=== PATIENT | female | born 1995 | race African-American/Black ===

== ENCOUNTER 2020-09-12 16:59 | Emergency (ER) | payer OTHER ==
[2020-09-12] MEDS ORDERED: ANXIETY/DEPRESSION PO (17:49)
[2020-09-12] MEDS ORDERED: MYRAC50 MG PO (17:49)
[2020-09-12] MEDS ORDERED: BIRTHCONTROL (17:50)
[2020-09-12 17:57] LABS: URINE BILIRUBIN - DIPSTICK NEGATIVE (NEGATIVE); URINE BLOOD DIPSTICK MODERATE (NEGATIVE); URINE CLARITY CLEAR; URINE COLOR YELLOW; URINE GLUCOSE - DIPSTICK NEGATIVE (NEGATIVE); URINE KETONE NEGATIVE (NEGATIVE); URINE LEUK ESTERASE NEGATIVE (Negative); URINE NITRITE - DIPSTICK NEGATIVE (Negative); URINE PROTEIN - DIPSTICK NEGATIVE (NEG-TRACE); URINE SPECIFIC GRAVITY 1.025; URINE UROBILINOGEN - DIPSTICK 0.2 E.U./dL (0.2)
[2020-09-12 18:03] LABS: URINE SQUAMOUS EPITHELIAL CELL FEW EPI/hpf (0-FEW); URINE WBC 0-2 WBC/hpf (0-5)
[2020-09-12] MEDS ORDERED: FIORICET PO (18:53)
[2020-09-12] MEDS ORDERED: ZOFRAN4 MG/TAB PO (18:53)
[2020-09-12 18:56] VITALS: BP 112/87
== END 2020-09-12 18:56 | disposition home or self-care (01) | DRG 605 ==
LOC: ED 16:59
DX: S50.312A Abrasion of left elbow, initial encounter (principal); R51.9 Headache, unspecified; F41.9 Anxiety disorder, unspecified; V48.5XXA Car driver injured in noncollision transport accident in traffic accident, initial encounter